=== PATIENT | male | born 2000 | race Caucasian/White ===

== ENCOUNTER 2018-08-27 10:35 | Emergency (ER) | payer OTHER ==
[2018-08-27 10:40] VITALS: BP 143/59
[2018-08-27] MEDS ORDERED: SKIN ADHESIVE (DERMABOND) 1 EACH TP ONE (11:13)
--- NOTE | 2018-08-27 11:13 | EDPHY ---
H & P Smoking Status: Never smoked Time Seen by Provider: 08/27/18 10:53 HPI/ROS: CHIEF COMPLAINT: Chin laceration HISTORY OF PRESENT ILLNESS: 17-year-old male no anticoagulant use states that approximately 1:00 a.m. Today he sustained a mechanical fall hitting his chin on a counter. He sustained laceration.No loss of consciousness. No headache. No midline C-spine pain. No nausea or vomiting. In the ER complaining laceration without PRIMARY CARE PROVIDER: REVIEW OF SYSTEMS: 10 systems reviewed and negative with the exception of the elements mentioned in the history of present illness PAST MEDICAL/SURGICAL HISTORY: no anticoagulant use, no relevant medical/ surgical history SOCIAL HISTORY: denies alcohol use at time of incident PHYSICAL EXAM 1) GENERAL: Well-developed, well-nourished, alert and oriented. Appears to be in no acute distress. Answering questions appropriately. 2) HEAD: Normocephalic, atraumatic 3) HEENT: Pupils equal, round, reactive to light bilaterally. Negative Horners. Nasopharynx, oropharynx, clear. No deformity or angulation of nose. No septal hematoma. No rhinorrhea. No oral trauma. Ears bilaterally with normal tympanic membranes. No hemotympanum. No fluid or blood in the external auditory canal. No raccoon eyes. No Kee sign. Inferior chin 1.5 cm well- demarcated linear laceration Teeth are normally aligned with no gross malocclusion, TMJ bilaterally nontender, facial bones nontender including the zygomatic arch, maxilla mandible. 4) NECK: No cervical collar is on. Posterior cervical spine is nontender, no stepoff, no effusion. Full range of motion which does not elicit any midline cervical spine pain, no posterior midline tenderness, no step-off. (Karthikeyan William) Constitutional: Initial Vital Signs Temperature (C) 36.4 C 08/27/18 10:36 Heart Rate 74 08/27/18 10:36 Respiratory Rate 17 08/27/18 10:36 Blood Pressure 143/59 H 08/27/18 10:36 O2 Sat (%) 96 08/27/18 10:36 O2 Delivery Mode Room Air Allergies/Adverse Reactions: No Known Allergies Allergy (Unverified 08/27/18 10:36) Home Medications: Medication Instructions Recorded NK [No Known Home Meds] 08/27/18 MDM/Departure - [facility] Procedures: Procedure: Laceration repair. I explained the indications, risks and benefits for both laceration repair and anesthetic administration. Verbal consent was obtained from the patient. The laceration on the chin was anesthetized using 0.5% bupivicaine with epinephrine. After anesthetic administered the patient was observed for a period of time and had no apparent adverse effects. The wound was cleaned, prepped, draped in normal sterile fashion and explored to its base. No foreign body seen, no foreign bodies palpated. There were no deep structures involved. Initially discussed tissue adhesive however I did not like the way the tissue margins were reapproximating and I therefore recommended manual manipulation which is possible with suturing. The wound was repaired with 5 simple interrupted 6 0 Prolene sutures. The wound repair was simple The procedure was performed by myself. Patient has been informed that scarring will occur, although efforts have been made to minimize this. (Karthikeyan William) ED Course/Re-evaluation: Doubt intracranial hemorrhage, doubt mandibular fracture, doubt C-spine fracture. I do not think that imaging studies indicated at this time. Plan will be primary wound closure with tissue adhesive in the ER. Usual and customary wound precautions instructions provided. (Karthikeyan William) I did not see this patient while he was in the emergency department. However his care was discussed with the PA while the patient was in the department. I agree with treatment plan and management (Jose J Lino) - Depart Disposition: Home, Routine, Self-Care Clinical Impression: Laceration of chin Condition: Good Instructions: Laceration (ED), Skin Adhesive Care (ED) Additional Instructions: Return to the ER if you develop redness, swelling, discharge, warmth to the wound, or any other symptoms that concern you. Referrals: Return , to the ER in 5 days for suture removal [Other] - 09/01/18
== END 2018-08-27 11:55 | disposition home or self-care (01) ==
PROC: 0HQ1XZZ Repair Face Skin, External Approach (ICD-10-PCS; principal; 2018-08-27)
DX: S01.81XA Laceration without foreign body of other part of head, initial encounter (principal); W01.198A Fall on same level from slipping, tripping and stumbling with subsequent striking against other object, initial encounter; Y92.9 Unspecified place or not applicable

== ENCOUNTER 2018-11-06 12:45 | Emergency (ER) | payer OTHER ==
[2018-11-06 13:07] VITALS: BP 145/73
--- NOTE | 2018-11-06 13:35 | EDPHY ---
H & P Stated Complaint: slipped on ice tuesday inj r ankle Time Seen by Provider: 11/06/18 13:31 HPI/ROS: CHIEF COMPLAINT: Right ankle injury HISTORY OF PRESENT ILLNESS: The patient presents the ED with complaints of right lateral ankle pain following a slip on the ice several days ago. The patient denies any additional injury. He specifically denies right knee, hip or back pain. He has no complaints of acute numbness or weakness. He has moderate pain with attempted ambulation. REVIEW OF SYSTEMS: A comprehensive 10 point review of systems is otherwise negative aside from elements mentioned in the history of present illness. Source: Patient - Personal History Current Tetanus Diphtheria and Acellular Pertussis (TDAP): Yes - Medical/Surgical History Hx Asthma: No Hx Chronic Respiratory Disease: No Hx Diabetes: No Hx Cardiac Disease: No Hx Renal Disease: No Hx Cirrhosis: No Hx Alcoholism: No Hx HIV/AIDS: No Hx Splenectomy or Spleen Trauma: No Other PMH: DENIES - Social History Smoking Status: Never smoked - Physical Exam Exam: General appearance: alert no distress Right ankle: There is swelling and tenderness over the lateral malleolus. Ankle joint is stable and there is no tenderness over the Achilles tendon. The foot is nontender without swelling. Neurologic exam: The patient has normal sensation and motor function distal to the injury. Vascular exam: Normal pulses and capillary refill in the foot DIFFERENTIAL DIAGNOSIS: After history and physical exam differential diagnosis was considered for ankle injury including sprain, fracture, dislocation and soft tissue injury. Constitutional: Initial Vital Signs Temperature (C) 36.9 C 11/06/18 13:05 Heart Rate 63 11/06/18 13:05 Respiratory Rate 18 11/06/18 13:05 Blood Pressure 145/73 H 11/06/18 13:05 O2 Sat (%) 94 11/06/18 13:05 O2 Delivery Mode Room Air Allergies/Adverse Reactions: No Known Allergies Allergy (Verified 11/06/18 13:05) Home Medications: Medication Instructions Recorded NK [No Known Home Meds] 08/27/18 Medical Decision Making - Diagnostics Imaging Results: Imaging Impressions Ankle X-Ray 11/06/18 13:07 Impression: Nondisplaced Connor B fracture distal right fibula. ED Course/Re-evaluation: The patient presents to the ED with right ankle pain is found to have a nondisplaced Connor B fracture involving the distal fibula. The patient was placed in a Javed boot. He is given crutches. He is advised to be nonweightbearing. The patient is referred to our on-call orthopedic surgeon Dr. Villarreal for definitive treatment. Departure - Departure Disposition: Home, Routine, Self-Care Clinical Impression: Ankle fracture Qualifiers: Encounter type: initial encounter Fracture type: closed Laterality: right Qualified Code(s): S82.891A - Other fracture of right lower leg, initial encounter for closed fracture Condition: Good Instructions: Ankle Fracture (ED) Additional Instructions: 1. Javed boot and crutches until seen in follow-up by Dr. Villarreal from Orthopedic surgery. 2. Elevate at night 3. Ice 20-30 minutes at a time several times a day. 4. Take Ibuprofen or Motrin 600 mg by mouth three times a day. Referrals: Kirsty Villarreal MD [Medical Doctor] - As per Instructions
== END 2018-11-06 13:41 | disposition home or self-care (01) ==
DX: S82.891A Other fracture of right lower leg, initial encounter for closed fracture (principal); W00.0XXA Fall on same level due to ice and snow, initial encounter; Y92.9 Unspecified place or not applicable; Y93.9 Activity, unspecified; Y99.9 Unspecified external cause status
CPT/HCPCS: L4386